=== PATIENT | male | born 1945 | race Caucasian/White ===

== ENCOUNTER 2023-04-30 11:11 | Observation (INO) ==
--- NOTE | 2023-04-30 08:15 | History & Physical Bridge Note ---
Date of Service April 30, 2023 History & Physical Bridge Note I have examined the patient, reviewed the History & Physical and in the interval since the performance of the History & Physical I have noted the following changes of clinical significance: no changes noted
--- NOTE | 2023-04-30 08:15 | Pre Anesthesia Assessment ---
Date of Service April 30, 2023 Pre Sedation Assessment Cardiovascular + regular rate Respiratory + respiratory effort normal Pre-Sedation Airway Assessment Smoking Status: Never smoker Hx Sleep Apnea: No Hx Difficult Intubation: No Short, Thick Neck: No Thyromental Distance: < 3.5 Finger Breadths Oral Cavity: + WNL Mallampati Class: III ASA: ASA3 Procedure Planning Contraindications for Sedation: none Current Medications Reviewed: Yes Notes The planned sedation has been discussed with the patient. Informed Consent was obtained. I have identified the patient, determined the appropriateness of sedation and have assessed the patient immediately prior to the procedure. All medicine(s) and interventions are by my order.
[2023-04-30] MEDS: fentaNYL citrate PF 100 MCG/2 ML VIAL ONE ×3 (15:19→18:04)
[2023-04-30] MEDS: HEPARIN (PORCINE) 1000 UNIT/ML 10 ML (CATH LAB USE ONLY) ONE ×3 (15:20→18:04)
[2023-04-30] MEDS: MIDAZOLAM HCL 1 MG/ML 2ML VIAL ONE ×2 (15:20→18:05)
[2023-04-30] MEDS: OPTIRAY 350 ONE (15:21)
[2023-04-30] MEDS: NITROGLYCERIN/D5W 100MCG/ML 20ML SYR ONE ×2 (15:21→18:05)
[2023-04-30] MEDS: niCARdipine HCL INJ 2.5 MG/ML 10 ML AMP ONE ×2 (15:21→18:05)
[2023-04-30] MEDS: CLOPIDOGREL BISULFATE 300 MG TAB ONE (15:22)
[2023-04-30] MEDS ORDERED: NITROGLYCERIN SL 0.4 MG/TAB TAB SL PRN (16:09)
[2023-04-30] MEDS ORDERED: ONDANSETRON INJ 2 MG/ML 2 ML VIAL IV PRN (16:09)
[2023-04-30] MEDS: NITROGLYCERIN SL 0.4 MG/TAB TAB ONE ×3 (16:18→16:30)
[2023-04-30] MEDS: NITROGLYCERIN 2% OINTMENT 30GM TUBE EXT ONE (17:03)
[2023-04-30] MEDS: METOPROLOL TARTRATE 1 MG/ML VIAL IV ONE (17:12)
[2023-04-30] MEDS: NITROGLYCERIN/D5W 100 MCG/ML BTL ONE (18:07)
[2023-04-30] MEDS ORDERED: STAT IV Infusion **Titration per Protocol STA (18:38)
--- NOTE | 2023-04-30 18:38 | Post Anesthesia Assessment ---
Date of Service April 30, 2023 Post Sedation Assessment Vital Signs Temp Pulse Resp BP Pulse Ox O2 Del Method 04/30/23 16:30 63 16 137/74 04/30/23 16:15 63 16 145/76 H 04/30/23 16:00 66 16 192/95 H 04/30/23 15:45 66 16 186/92 H 04/30/23 15:30 59 L 16 176/109 H 96 Room Air 04/30/23 11:49 97.7 F 60 20 149/74 H 97 Room Air Recovery Score Activity: Moves 4 extremities Respiration: Deep Breath/Cough Circulation: +/-20% PreAnes Value Consciousness: Fully Awake Oxygen Saturation: > 92% On Room Air Post Anesthesia Score: 10 Discharge Sedation Level of Care: Fast Track Phase II Post Sedation Plan On clinical assessment, the patient appears to have tolerated the sedation without complications. Patient is recovering as anticipated. Patient will continue to be monitored by nursing and may be discharged when sedation discharge criteria are met per below protocol. Upon Completions of procedure up to 15 minutes continue every 5 minute vital signs and the P.A.R. score; then discharge to a Phase I or Fast Track to Phase II per the following guidelines: * Discharge Patient to appropriate Phase II area if PAR is 8 or greater or return to pre- procedure baseline. The post - procedure orders will be as directed. * If PAR score is less than 8 or not return to pre-procedure baseline then patient will follow Phase I monitoring till PAR is reached for Phase II. The Phase I may be done in procedure room or may call to secure a Phase I area. * If naloxone or flumazenil are used for reversal, hold in Phase I for continued monitoring from when last reversal dose was given for a minimum of 60 minutes or longer pending the nurse and/or physician discretion of patient condition before discharge to Phase II. Please call the Sedation Physician to re-evaluate and complete post-note for discharge to Phase II area. Do NOT discharge from procedure sedation or Phase 1 until post- sedation evaluation note is complete by procedure /sedation MD Sedation Discharge Instructions to be given to the patient at discharge to home.
[2023-04-30] MEDS: NITROGLYCERIN/D5W 100MCG/ML 250 ML IV SCH (18:52)
[2023-04-30] MEDS: KETOROLAC TROMETHAMINE 15 MG/ML VIAL IV ONE ×2 (18:55→19:50)
[2023-04-30] MEDS: MoRPHine SULFATE 2 MG/ML CARP IV PRN (19:20)
[2023-04-30] MEDS: MoRPHine SULFATE 2 MG/ML CARP IV STA (19:49)
[2023-04-30] MEDS: SODIUM CHLORIDE 0.9% 1,000 ML IV SCH (21:15)
--- NOTE | 2023-04-30 22:10 | Cardiac Catheterization ---
[facility] Data: Pharmacy Technology Instructor Cardiac Status Clinical evaluation leading to the procedure CAD Presenation: Unstable angina Anginal Classification: CCS III Diagnostic Physicians Name: Derek Morse MD Closure Device Recommendations: PCI without planned CABG Cardiac Cath Procedure Full Procedure Date April 30, 2023 Pre-Procedure Diagnosis Pre-Procedure Diagnosis: Angina and CAD AUC Score AUC Score: 7 Post-Procedure Diagnosis Post-Procedure Diagnosis: Severe CAD and Successful PCI Procedure(s) Performed Procedure(s) Performed: Coronary Angiography, Drug Eluting Stent, IVUS and Fractional Flow [place] Survey Associate Derek Morse MD Remote Encoding Center Manager(s) Sarah Estimated Blood Loss Estimated Blood Loss: 20 Medication(s) Medication(s): Clopidogrel, Fentanyl, Heparin, Lidocaine 1%, Nicardipine, Nitroglycerin and Versed Summary of Findings Indication: Accelerating angina, history of CAD post prior PCI with stenting Access: 6 Fr right radial artery Catheters: JL 3.5, JR4, EBU 3.5 guide Findings: LM -normal caliber, calcified, 40% distal stenosis at bifurcation (IVUS revealed circumferential calcium just prior to bifurcation, CSA 7.6 mm). LAD -medium caliber, calcified, 50% ostial stenosis, 70% earlymid stenosis just after takeoff of D1. Mid LAD stent patent with in-stent restenosis up to 80% at distal aspect of existing stent. Remainder of mid and distal vessel with luminal irregularities as wraps around apex. Medium D1 hazy 40% ostial stenosis, mid diagonal mild disease. Very small jailed D2 with severe ostial disease. Small to medium D3 without disease. Circumflex -medium caliber, 50% ostial stenosis, mid segment luminal regularities. Large OM 2 without significant disease. RCA -dominant, large caliber, 30-40% proximal stenosis, mid segment with luminal regularities. PDA/PLB without significant disease. IFR assessment of LMCA/circumflex/LAD Left main cannulated with EBU 3.5 guide Russo FFR Omni wire placed across ostial circumflex stenosis into OM 2 IFR 0.97 Omni wire removed from circumflex and redirected into LAD and navigated into latemid vessel IFR 0.80 Decision to further evaluate left main with IVUS --IVUS/PCI -- Antithrombotic therapy: Heparin, clopidogrel Procedure: Left main cannulated with EBU 3.5 guide Pre-procedure flow SIVAN 3 Exhibitions And Collections Manager 50 wire passed across LAD lesion into distal vessel Prowater wire placed into first diagonal Russo IVUS catheter placed to mid LAD Pullback revealed severe in-stent restenosis at distal aspect of stent, heavy circumferential calcium, severe stenosis just after takeoff of D1, proximal LAD with mild disease. Calcified moderate ostial stenosis. LMCA with heavily calcified distal vessel before bifurcation, intermediate stenosis (CSA 7.6 mm). With moderate left main disease on IVUS and nonsignificant LMCA/circumflex disease by IFR decision to proceed with PCI of LAD Mid LAD lesions predilated with 2.5 compliant balloon Difficulty passing stent across proximal aspect of stent Telescope support catheter placed and proximal aspect of stent redilated with 3.0 balloon Dilated lesion at distal aspect of existing stent stented with 2.5 x 15 mm Dre LOLA overlapping with prior stent Stent postdilated with stent balloon to high atmospheres Earlymid LAD lesion stented with 3.0 x 12 mm [place] LOLA extending across takeoff of D1 and overlapping proximal aspect of existing stent Repeat IVUS showed no acute complications at distal aspect of stent. Stents well-expanded. Most proximal aspect of stent not well apposed. No change in distal left main or ostial LAD disease. Proximal most stent post-dilated with 3.5 noncompliant balloon IC vasodilators administered for spasm Post procedure SIVAN 3 flow, stent well expanded with minimal residual stenosis. Very small jailed D2 with reduced flow. Residual moderate to severe ostial stenosis of D1 but SIVAN-3 flow. No other apparent complications Arterial Closure: TR band Summary: 1. Multivessel coronary artery disease -50% ostial LAD, 70% earlymid LAD, patent mid LAD stent with 80% in-stent restenosis at distal aspect (IFR 0.80) 40% distal left main (CSA 7.6 mm) 50% ostial circumflex (IFR 0.97). 2. Successful PCI of proximal to mid LAD with 3.0 x 12 mm Dre LOLA (postdilated with 3. 5 NC). 3. Successful PCI of mid LAD in-stent restenosis involving distal stent edge with 2.5 x 15 mm [place] LOLA. Recommendations: To PCU for continued monitoring Continue dual-antiplatelet therapy for at least 6 months, likely extended the setting of multiple overlapping stents ASCVD risk factor modification including more aggressive lipid management Consult cardiac Rehab Hemodynamics Rest Ao:: 114/66/86 Final Ao: 140/73/99 LV: -- Recommendations Recommendations: PCI without planned CABG Specimens Specimens: None Radiation Exposure (mGy) 4749 Contrast (mls) 140 Anesthesia Moderate 4238-5948 Procedural Complication(s) None Disposition Pharmacy Technology Instructor Holding/Recovery I attest to the content of the Intraoperative Record and any orders documented therein. Any exceptions are noted below. [facility] Card Cath Procedure Codes Cardiac Catheterization Procedure 1: Cardiovascular Cath Procedures: 84827 Coronaries and LHC (+/-LV) Procedure 2: Cardiovascular Cath Procedures: 96034 (Doppler) Pressure Wire Procedure 3: Cardiovascular Cath Procedures: 61060 (Doppler) Pressure Wire Addl vessel Therapeutic Services & Ancillary Procedure 1: Cardiovascular Tx and Anc Procedures: 84959 IV Ultrasound (Coronary or Graft) Moderate Sedation Procedure 1: Sedation/Anesthesia: 08118 Mod Sedation by the same physician;Init15 Min Child Age 5 & Up Procedure 2: Sedation/Anesthesia: 52872 Mod Sedation by the same physician; Ea [id number] Minutes Stenting Procedure 1: Cardiovascular Stent Procedures: 02072 Perc transcatheter placement of intracoronary stent(s), with ang PG Care Time/CCT Total # of Minutes Spent Total Time Spent with Patient: Total time spent is greater than 50% in coordination of care (as documented) at patient's floor/unit and/or counseling patient:
--- NOTE | 2023-04-30 23:09 | Cardiac Catheterization ---
[facility] Data: Electric Motor Winders Assembler Cardiac Status Clinical evaluation leading to the procedure CAD Presenation: Unstable angina Diagnostic Physicians Name: Derek Morse MD Closure Device Recommendations: PCI without planned CABG Cardiac Cath Procedure Full Procedure Date April 30, 2023 Pre-Procedure Diagnosis Pre-Procedure Diagnosis: Angina and CAD AUC Score AUC Score: 8 Post-Procedure Diagnosis Post-Procedure Diagnosis: Moderate CAD Procedure(s) Performed Procedure(s) Performed: Coronary Angiography, Left Heart Cath and IVUS Solar Process Engineer Derek Morse MD Precipitator(s) Sarah Estimated Blood Loss Estimated Blood Loss: 5 Medication(s) Medication(s): Fentanyl, Heparin, Lidocaine 1%, Nicardipine, Nitroglycerin and Versed Summary of Findings Indication: Earlier in the afternoon patient underwent PCI of calcified mid LAD in-stent restenosis with placement of 2 new LOLA. Initially post procedure feeling well subsequently developed low-grade chest pain which progressed and was associated with subtle lateral ST changes. Decision to return to Electric Motor Winders Assembler for repeat angiography Access: 6 Fr left radial artery Catheters: Pigtail, JR4, EBU 3.5 guide Findings: Coronary arteries unchanged from final images post PCI earlier in afternoon. Intermediate left main disease persists. LAD stents widely patent with no apparent edge. SIVAN-3 flow in LAD, circumflex although appears slightly sluggish globally. SIVAN II-III flow in medium D1, very small D2. LM -normal caliber, calcified, 40% distal stenosis at bifurcation LAD -medium caliber, calcified, 50% ostial stenosis, proximal to mid stents widely patent, remainder of mid and distal vessel with luminal irregularities as wraps around apex. Jailed medium D1 hazy 60% ostial stenosis Very small jailed D2 with severe ostial disease. Small to medium D3 without disease. Circumflex -medium caliber, 50% ostial stenosis, mid segment luminal regularities. Large OM 2 without significant disease. RCA -dominant, large caliber, 30-40% proximal stenosis, mid segment with luminal regularities. PDA/PLB without significant disease. --IVUS of LMCA/LAD-- Antithrombotic therapy: Heparin Procedure: Left main cannulated with EBU 3.5 guide BMW wire placed into distal LAD Russo IVUS catheter placed to mid LAD Pullback revealed well-expanded, well apposed stents throughout LAD. Unchanged intermediate, calcified ostial LAD and distal LMCA disease. Post procedure angiography revealed no apparent complications LVEDP 15 Arterial Closure: TR band Summary: 1. Stable, unchanged multivessel coronary artery disease -50% ostial LAD, widely patent proximal to mid LAD stents. Jailed D1 60% ostial 40% distal left main 50% ostial circumflex 2. Normal left-sided filling pressures. Recommendations: To PCU for continued monitoring Continue dual-antiplatelet therapy for at least 6 months, likely extended the setting of multiple overlapping stents Additional nitrates for possible chest pain related to jailed diagonals Repeat echo Hemodynamics Rest Ao:: 149/82/113 Final Ao: 154/75/99 LV: 162/15 Recommendations Recommendations: PCI without planned CABG Specimens Specimens: None Radiation Exposure (mGy) 1037 Contrast (mls) 50 Anesthesia Moderate 7461-1813 Procedural Complication(s) None Disposition PCU I attest to the content of the Intraoperative Record and any orders documented therein. Any exceptions are noted below. [facility] Card Cath Procedure Codes Cardiac Catheterization Procedure 1: Cardiovascular Cath Procedures: 74955 Left Heart Cath (+/-LV) Therapeutic Services & Ancillary Procedure 1: Cardiovascular Tx and Anc Procedures: 37829 IV Ultrasound (Coronary or Graft) Moderate Sedation Procedure 1: Sedation/Anesthesia: 68673 Mod Sedation by the same physician;Init15 Min Child Age 5 & Up PG Care Time/CCT Total # of Minutes Spent Total Time Spent with Patient: Total time spent is greater than 50% in coordination of care (as documented) at patient's floor/unit and/or counseling patient:
[2023-04-30] MEDS ORDERED: ACETAMINOPHEN 325 MG TAB PO PRN (23:47)
[2023-04-30] MEDS ORDERED: MoRPHine SULFATE 2 MG/ML CARP IV PRN (23:49)
[2023-05-01] MEDS: IBUPROFEN 600 MG TAB PO SCH (00:05)
[2023-05-01] MEDS: fentaNYL citrate PF 100 MCG/2 ML VIAL IV STA (00:05)
[2023-05-01] MEDS: MoRPHine SULFATE 2 MG/ML CARP IV PRN (02:40)
[2023-05-01] MEDS: LEVOTHYROXINE SODIUM 50 MCG TABLET PO SCH (04:59)
[2023-05-01 06:10] LABS: Hemoglobin 12.3 g/dl (14.0-18.0); Mean Corpuscular Hemoglobin 29.7 pg (25.0-34.0); Mean Corpuscular Hgb Conc 33.2 g/dL (32.0-36.0); Mean Corpuscular Volume 89.4 fL (80.0-100.0); Mean Platelet Volume 10.3 fL (9.4-12.4); Platelet Count 172 K/uL (130-400); RDW Coefficient of Variation 14.6 % (11.5-14.5); RDW Standard Deviation 46.9 fL (36.4-46.3); Red Blood Count 4.14 M/uL (4.70-6.10); White Blood Count 7.44 K/ul (4.8-10.8)
[2023-05-01 06:20] LABS: BUN Creatinine Ratio 15.4 (10-20); Calcium 8.8 mg/dl (8.6-10.3); Creatinine Clr Calc Pharmacy 66.7 ml/min; Est GFR (African American) 78.8 ml/min; Potassium 4.1 mmol/L (3.5-5.1)
[2023-05-01 06:34] LABS: Troponin I High Sensitivity 1286.7 pg/ml (0-20)
[2023-05-01] MEDS: allopurinoL 300 MG TAB PO SCH (08:28)
[2023-05-01] MEDS: NITROGLYCERIN/D5W 100 MCG/ML BTL ONE (08:28)
[2023-05-01] MEDS: PANTOprazole 40 MG TAB PO SCH (08:28)
[2023-05-01] MEDS: EZETIMIBE 10 MG TAB PO SCH (08:28)
[2023-05-01] MEDS: ASPIRIN 81 MG ECTAB PO SCH (08:29)
[2023-05-01] MEDS: CLOPIDOGREL BISULFATE 75 MG TAB PO SCH (08:29)
[2023-05-01] MEDS: METOPROLOL SUCC 25MG EXT REL TAB PO SCH (08:29)
[2023-05-01] MEDS: lisinopril 10 MG TAB PO SCH (08:29)
[2023-05-01] MEDS ORDERED: NON-FORMULARY MEDICATION (Coenzyme Q10 100 mg capsule) PO SCH (09:00)
--- NOTE | 2023-05-01 10:10 | XRay Report ---
XR chest 2V PA/lateral HISTORY: Atypical chest pain. COMPARISON: None. FINDINGS: There are low lung volumes. No pneumothorax. The heart is mildly enlarged. No pleural effus ions. No evidence for pulmonary edema. Bibasilar linear densities most pronounced on the left. No acu te fractures identified. IMPRESSION: Low lung volumes with bibasilar linear densities. These favor subsegmental atelectasis. A pneumonia i s considered less likely but not entirely excluded. ACT 112: Negative or not required by law. Electronically signed by: Ramiro Szymanski M.D. 05/01/2023 10:09 AM
--- NOTE | 2023-05-01 12:51 | Electrocardiogram Report ---
Test Reason : Blood Pressure : / mmHG Vent. Rate : 060 BPM Atrial Rate : 060 BPM P-R Int : 192 ms QRS Dur : 086 ms QT Int : 448 ms P-R-T Axes : 023 006 049 degrees QTc Int : 448 ms Sinus rhythm with frequent Premature ventricular complexes Otherwise normal ECG When compared with ECG of 28-APR-2023 15:11, (unconfirmed) No significant change was found Confirmed by Christiano Zaidi ([id number]) on 05/01/2023 12:50:59 PM Referred By: Javier Morse Confirmed By:Christiano Zaidi
--- NOTE | 2023-05-01 12:53 | Electrocardiogram Report ---
Test Reason : Blood Pressure : / mmHG Vent. Rate : 065 BPM Atrial Rate : 065 BPM P-R Int : 188 ms QRS Dur : 082 ms QT Int : 422 ms P-R-T Axes : 026 006 043 degrees QTc Int : 438 ms Sinus rhythm with occasional Premature ventricular complexes Nonspecific ST abnormality Abnormal ECG When compared with ECG of 30-APR-2023 15:53, (unconfirmed) No significant change was found Confirmed by Christiano Zaidi ([id number]) on 05/01/2023 12:53:13 PM Referred By: Javier Morse Confirmed By:Christiano Zaidi
--- NOTE | 2023-05-01 13:08 | Electrocardiogram Report ---
Test Reason : Blood Pressure : / mmHG Vent. Rate : 076 BPM Atrial Rate : 076 BPM P-R Int : 192 ms QRS Dur : 080 ms QT Int : 398 ms P-R-T Axes : 020 002 045 degrees QTc Int : 447 ms Sinus rhythm with frequent Premature ventricular complexes and Fusion complexes RSR' or QR pattern in V1 suggests right ventricular conduction delay Abnormal ECG When compared with ECG of 30-APR-2023 16:26, (unconfirmed) Fusion complexes are now Present Confirmed by Christiano Zaidi ([id number]) on 05/01/2023 1:07:39 PM Referred By: Javier Morse Confirmed By:Christiano Zaidi
--- NOTE | 2023-05-01 13:14 | Cardiology Progress Note ---
Date of Service May 01, 2023 Assessment & Plan (1) CAD (coronary artery disease): Plan: Post PCI with 2 LOLA to LAD 2. Pleuritic chest pain 3. PAD post prior endovascular intervention 4. Hypertension 5. Dyslipidemia with statin intolerance 6. Type 2 diabetes Patient with ongoing pleuritic chest pain. Current chest pain does not represent ongoing issue with coronary arteries postintervention. No clear lung pathology on chest x-ray. Scant wheezing but no clear signs of heart failure on exam. Chest pain not reproducible with palpation. Suspect chest pain most likely secondary to pericarditis/post cardiac injury syndrome. Low suspicion for PE but with new mild to moderate pulmonary hypertension check chest CTA. Continue scheduled NSAIDs, add colchicine. Started on PPI Will give 1 dose of IV Lasix. Consider trial of bronchodilator. -- Check CTA -- Continue current DAPT with aspirin, clopidogrel Continue current metoprolol, lisinopril -- Continue Zetia. PCSK9 dicussion as an outpatient If CTA unremarkable, CP reasonably controlled OK with home later today or tomorrow AM. Admission and Anticipated Discharge Date Admission Date: April 30, 2023 Subjective Continues to have diffuse chest pain, pleuritic in nature. Intermittently able to rest. Minimal response to morphine. Telemetry reviewedno events Chest x-ray unremarkable Echocardiogrampreserved biventricular function. Trivial pericardial effusion. Moderate pulmonary hypertension Review of Systems Review of Systems: All systems reviewed & are unremarkable except as noted in HPI & below Physical Exam Physical Exam: General: Uncomfortable after deep breath HEENT: Sclerae anicteric Lungs: Clear to auscultation bilaterally, few crackles that resolved with inspiration. Question upper airway wheezing Cardiac: Regular rate and rhythm, no murmurs. No rub Vascular: 2+ radial pulses bilaterally. No hematoma Abdomen: Soft, nontender Extremities: Well perfused, no peripheral edema Neuro: Nonfocal Psych: Alert orient x3, normal affect and mood Results & Data Vital Signs (Past 12 Hours) Vital Signs Temp Pulse Pulse Resp BP BP Pulse Ox 05/01/23 11:50 98.4 F 66 16 146/76 H 99 05/01/23 08:12 98.1 F 65 16 143/72 H 93 05/01/23 08:00 05/01/23 07:00 68 05/01/23 03:18 98.1 F 62 18 133/77 92 O2 Del Method 05/01/23 11:50 Room Air 05/01/23 08:12 Room Air 05/01/23 08:00 Room Air 05/01/23 07:00 05/01/23 03:18 Room Air PG Care Time/CCT Total # of Minutes Spent Total Time Spent with Patient: Total time spent is greater than 50% in coordination of care (as documented) at patient's floor/unit and/or counseling patient: Coding Level of Care Code 95488 SUB INP/OBS CARE 3/50MIN Diagnoses CAD (coronary artery disease) I25.10
--- NOTE | 2023-05-01 13:19 | XCELERA ---
[id number]
[2023-05-01] MEDS ORDERED: oxyCODONE HCL IR 5 MG TAB (IMMEDIATE RELEASE) PO PRN (13:36)
[2023-05-01] MEDS: OPTIRAY 320 125ml IV ONE (15:05)
[2023-05-01] MEDS: FUROSEMIDE INJ 20 MG/2 ML VIAL IV ONE (15:07)
[2023-05-01] MEDS: COLCHICINE 0.6 MG TAB PO SCH (15:07)
--- NOTE | 2023-05-01 15:24 | CT Scan Report ---
CT ANGIOGRAPHY OF THE CHEST, PULMONARY EMBOLUS PROTOCOL CLINICAL HISTORY: Pleuritic chest pain. Evaluate for pulmonary embolus. COMPARISON STUDY: Chest radiograph performed earlier today. TECHNIQUE: Following IV administration of Optiray, helical axial images of the chest were obtained ut ilizing the pulmonary embolus protocol. Maximal intensity projections and sagittal and coronal refor mats were viewed on an independent 3D workstation. IV contrast was administered without complication . Automated exposure control was utilized for the study. A dose lowering technique was utilized adh ering to the principles of ALARA. CT DOSE: 770.71 mGy.cm FINDINGS: No pulmonary emboli are identified. Subsegmental pulmonary arteries are suboptimally asses sed due to respiratory motion. There is mild cardiomegaly and extensive coronary artery calcification . There is a small pericardial effusion. Measures above water attenuation. No thoracic aortic dissec tion is present. There is no thoracic lymphadenopathy. No pneumothorax or pleural effusion is present . Lungs are suboptimally assessed due to respiratory motion. Low lung volumes are noted. Subpleural o pacities favor atelectasis. A few patchy groundglass upper lobe opacities are noted. The largest is a 1.6 cm right upper lobe focus on image 149. No acute fractures within the bony thorax are identified . Visualized portions of the upper abdomen are unremarkable. IMPRESSION: 1. No pulmonary emboli identified. 2. Mild cardiomegaly and extensive coronary artery calcification. Small pericardial effusion which me asures above water attenuation, as described above. Pericarditis cannot be excluded. No thoracic aort ic dissection. 3. A few patchy upper lobe groundglass opacities. These could reflect atelectasis, mild edema or an i nfectious process. A chest CT in 3 months to ensure resolution is recommended. ACT 112: Negative or not required by law. Electronically signed by: Carlos Russell M.D. 05/01/2023 3:22 PM
--- OUTSIDE RECORDS SUMMARY | 2023-05-02 21:08 | External Medical Summary | Summary of Care ---
Author Name Unknown Organization [facility] Address [address] [address] Phone [phone] Care Team Providers Care Trousseau Consultant Name Role Phone Link Ashley MD Primary Care Provider + Encounter Details Date Type Department Care Team (Late st Contact Info) Description 04/30/2023 Result Scan Unspecified Department <No scans attached> Allergies Active Allergy Reactions Criticality Noted Date Comments Atorvastatin 05/01/2018 myaglias Rosuvastatin Muscle pain 05/01/2018 Mirtazapine 11/17/2019 Dizzy Simvastatin Muscle pain 10/09/2017 documented as of this encounter (statuses as of 05/01/2023) Medications Medication Sig Dispensed Refills Start Date End Date Status Aspirin 81 MG Tablet Take 1 Tablet by mouth in the morning. 0 Active clopidogrel (PLAVIX) 75 MG Tablet Take 1 Tablet by mouth in the morning. 0 Active Coenzyme Q10 (CO Q 10) 100 MG CAPS Take by mouth. 0 Active vitamin e 100 UNIT Capsule Take 1 Capsule by mouth in the morning. 0 Active Vitamin D, Cholecalciferol, 400 units TABS Take by mouth. 0 Active Metoprolol Succinate ER 25 MG Oral Tablet Extended Release 24 Hour (toPROL XL) Take 1 Tablet by mouth in the morning. 0 Active Sildenafil Citrate 100 MG Oral TabletIndications:Erec tile dysfunction, unspecified erectile dysfunction type Take 1 Tablet by mouth daily as needed for Erectile Dysfunction. 10 Tablet 11 2022 Active Allopurinol 300 MG Oral Tablet (Zyloprim)Indications: Chronic gout without tophus, unspecified cause, unspecified site TAKE ONE TABLET BY MOUTH EVERY MORNING 90 Tablet 3 07/02/2022 Active Ezetimibe 10 MG Oral Tablet (Zetia) Take 1 Tablet by mouth at bedtime. 0 Active Hunter-3 1000 MG Oral Capsule Take by mouth. 0 Active Lisinopril 10 MG Oral Tablet (Prinivil) TAKE ONE TABLET BY MOUTH EVERY MORNING 90 Tablet 3 07/22/2022 Active Levothyroxine Sodium 50 MCG Oral Tablet (Levoxyl)Indications:A cquired hypothyroidism (at least 30 min prior to breakfast or other meds) 90 Tablet 3 11/12/2022 Active Celecoxib 200 MG Oral Capsule (CeleBREX) Take 1 Capsule by mouth 2 times a day as needed for Pain, Mild. 0 10/14/2022 Active metFORMIN HCl ER 500 MG Oral Tablet Extended Release 24 Hour (Glucophage XR)Indications:Type 2 diabetes mellitus with hemoglobin A1c goal of less than 8.0% (HCC) TAKE ONE TABLET BY MOUTH EVERY MORNING 90 Tablet 1 03/10/2023 Active documented as of this encounter (statuses as of 05/01/2023) Active Problems Problem Noted Date Diagnosed Date S/P total hip arthroplasty 11/12/2022 Overview: bilateral 2022 Type 2 diabetes mellitus wit h diabetic peripheral angiopathy without gangrene 2022 History of 2019 novel coronavirus disease (COVID -19) 11/12/2019 Peripheral arterial disease 11/12/2019 Persistent insomnia 11/12/2019 Type 2 diabetes mellitus wit h hemoglobin A1c goal of less than 8.0% 02/09/2019 Overview: 02/18 new dx 6.7 Other hyperlipidemia 05/01/2018 Well adult exam 05/01/2018 Overview: 01/21 fem pop stent on Right. Dr Morse [facility]. Declined PSCK9 07/29/[address] Froylan Verdugo / Dr Ribeiro [facility]. Sees Dr Lozano. 02/17 colonoguard WNL Declines all vaccines (friend ). Pancreatic cyst--2018-surgical removal rec--declined. Present since 2009. Monitor. Erectile dysfunction 01/30/2018 Coronary artery disease invo lving [place] coronary artery of [place] heart without angina pectoris 10/29/2017 Acquired hypothyroidism 10/29/2017 ALMA (generalized anxiety disorder) 10/29/2017 Pancreatic cyst 10/29/2017 Chronic gout without tophus 10/29/2017 HTN, goal below 130/80 10/29/2017 IPMN (intraductal papillary mucinous neoplasm) 0 10/11/2017 documented as of this encounter (statuses as of 05/01/2023) Social History Tobacco Use Types Packs/Day Years Used Date Smoking Tobacco: Former Smokeless Tobacco: Current Snuff Alcohol Use Standard Drinks/Week Comments No 0 (1 standard drink = 0.6 oz pur e alcohol) PHQ-2 Answer Date Recorded PHQ Adult Total Score 0 11/12/2022 Hunger Vital Sign Answer Date Recorded Within the past 12 months, y ou worried that your food would run out before you got the money to buy more. Never true 11/13/19 23 Within the past 12 months, t he food you bought just didn't last and you didn't have money to get more. Never true 11/12/2022 Sex and Gender Information Value Date Recorded Sex Assigned at Male 11/12/2022 2:49 PM EDT Gender Identity Male 11/12/2022 2:49 PM EDT Sexual Orientation Straight 11/12/2022 2: 49 PM EDT Job Start Date Occupation Industry Not on file Not on file Not on file documented as of this encounter Plan of Treatment Upcoming Encounters Date Type Department Care Team (Late st Contact Info) Description 11/14/2023 12:20 PM EDT Office Visit Family Practice [facility] [address] [id number] Link Ashley MD [address] [place] [address] Health Maintenance Due Date Last Done Comments Zoster Vaccines (1 of 2) 1994 Diabetic Eye Exam 01/15/2023 01/15/2022, , 01/15/2022, Additional history exists Diabetic Foot Exam 2023 2022, 09/20/2020 HbA1c 05/09/2023 11/08/2022, 05/0 05/2022, 01/22/2022, Additional history exists GFR 07/04/2023 07/03/2022, 01/02, 06/22/2021, Additional history exists TSH 11/09/2023 11/08/2022, 06/02, 12/18/2020, Additional history exists Albumin/Creatinine Ratio 11/13/2023 023, 01/22/2022, 09/01/2020 Depression Screening 11/13/2023 11/12/2022, 10/30/19 18 DTaP,Tdap,and Td Vaccines (2 - Td or Tdap) 10/30/2027 10/29/2017 (Declined) COVID-19 Vaccine Discontinued GARDASIL-HPV IMMUNIZATION SERIES Aged Out No longer eligible based on patient's age to complete this topic Hepatitis B Aged Out No longer eligi ble based on patient's age to complete this topic MENINGOCOCCAL (MENACTRA/MENVEO) Aged Out No longer eligible based on patient's age to complete this topic documented as of this encounter Medical Devices Not on filedocumented as of this encounter Procedures Procedure Name Priority Date/Time Associated Diagnosis Comments CARDIAC CATH SCANNED RESULT 04/30/2023 documented in this encounter Results * CARDIAC CATH SCANNED RESULT (04/30/2023) 04/30/2023 No Physician Data Unknown CARD CATH documented in this encounter Care Teams Trousseau Consultant Relationship Specialty Start Date End Date Link Ashley MD [address] [facility] [address] [place] [address] PCP - General Family Medicine 04/30/18 documented as of this encounter
--- NOTE | 2023-05-02 23:44 | Discharge Summary ---
Date of Service May 02, 2023 Admission HPI Per Admitting Provider Mr. Gomes is a very pleasant 78-year-old man with a history of CAD post prior PCI and PAD post prior lower extremity endovascular intervention. Seen 04/28 for acute visit in the setting of progressive shortness of breath. Presented 04/30 for repeat cardiac catheterization. Medical history also significant for hypertension, dyslipidemia, type 2 diabetes. Dyslipidemia with statin intolerance. Patient reports gradual progressive shortness of breath for months although symptoms have worsened significantly over the last few weeks. Denies any chest pain. Now short of breath just walking to mailbox or just walking to bed. States symptoms feel just like what he had before prior PCI's. No palpitations, presyncope. No new lower extremity edema orthopnea. ECG today shows sinus rhythm with occasional PVCs, no ST abnormalities. PAD history: He was seen in consult on 01/04/21 for claudication. In July 2019 he underwent right [employer],SFA endarterectomy with bovine patching performed by Dr. Verdugo. This was in the setting of claudication and rest pain. His symptoms resolved post intervention but later recurred. Angiogram 01/2021 showed only calcified popliteal disease with single-vessel runoff via peroneal. He underwent successful angioplasty and and stenting of right popliteal artery with drug eluding balloon (6.0 x120 Lutoxi) and Supera stent (6 x120 mm). Repeat angiogram 02/07/23 in setting of left lower extremity claudication. Had left mild to moderate diffuse SFA disease, heavily calcified 75% proximal and 95% mid popliteal stenosis. Single vessel runoff via peroneal. Underwent successful intervention of left popliteal artery with shockwave intravascular lithotripsy, angioplasty with Lutonix ZELDA and stenting (Supera 6x 120). Significant improvement in symptoms post intervention. Social history: , lives in [place]. No tobacco use. Specialty Data Cardiology Summary: 1. Multivessel coronary artery disease -50% ostial LAD, 70% earlymid LAD, patent mid LAD stent with 80% in-stent restenosis at distal aspect (IFR 0.80) 40% distal left main (CSA 7.6 mm) 50% ostial circumflex (IFR 0.97). 2. Successful PCI of proximal to mid LAD with 3.0 x 12 mm Dre LOLA (postdilated with 3. 5 NC). 3. Successful PCI of mid LAD in-stent restenosis involving distal stent edge with 2.5 x 15 mm [place] LOLA. Discharge Data Procedures Performed Operation Date: 04/30/23 17:30 Actual Procedures p Cineradiography w/Routine Exam - Derek Morse MD p Cath, Coronaries ONLY (no LV) - Derek Morse MD s IVUS Coronary Single Vessel - Derek Morse MD Hospital Course (1) CAD (coronary artery disease): Post PCI with 2 LOLA to LAD 2. Pleuritic chest pain 3. PAD post prior endovascular intervention 4. Hypertension 5. Dyslipidemia with statin intolerance 6. Type 2 diabetes Underwent repeat cardiac catheterization on 04/30/2023. Was noted to have severe mid LAD disease/in-stent restenosis. Had intermediate distal left main/ostial circumflex disease which was negative by IFR and IVUS. Underwent PCI of LAD with placement of drug-eluting stents. Several hours after procedure patient developed worsening chest pain and had subtle ECG changes prompting repeat cardiac catheterization which showed unchanged coronary angiography. Continued to have severe mostly pleuritic chest pain post procedure. Echocardiogram showed preserved biventricular function with trivial pericardial effusion. Chest CTA negative for PE/aortic pathology. Had modest rise and fall of HS TropI. Symptoms thought most likely secondary to acute pericarditis/postcardiac injury syndrome. Started on NSAIDs, colchicine. Also had some improvement following 1 dose of IV Lasix. On hospital day 2 chest pain reasonably controlled and discharged home. -- Continue current DAPT with aspirin, clopidogrel Continue current metoprolol, lisinopril -- Continue Zetia. PCSK9 dicussion as an outpatient Will follow-up with Dr. Morse in 2 weeks. Discharge Instructions Home Medications allopurinol 300 mg tablet 300 mg PO DAILY 01/03/21 [History Confirmed 04/28/23] aspirin 81 mg tablet,delayed release 81 mg PO DAILY 01/03/21 [History Confirmed 04/28/23] cholecalciferol (vitamin D3) 10 mcg (400 unit) tablet 10 mcg PO DAILY 01/03/21 [History Confirmed 04/28/23] clopidogrel 75 mg tablet (Plavix) 75 mg PO DAILY 01/03/21 [History Confirmed 04/28/23] coenzyme Q10 100 mg capsule 100 mg PO DAILY 01/03/21 [History Confirmed 04/28/23] levothyroxine 50 mcg tablet 50 mcg PO DAILY 01/03/21 [History Confirmed 04/28/23] lisinopril 10 mg tablet 10 mg PO DAILY 01/03/21 [History Confirmed 04/28/23] metformin 500 mg tablet 500 mg PO DAILY 01/03/21 [History Confirmed 04/28/23] metoprolol succinate 25 mg tablet,extended release 24 hr 25 mg PO DAILY 01/03/21 [History Confirmed 04/28/23] sildenafil 25 mg tablet 25 mg PO DAILY PRN Sexual Activity 01/03/21 [History Confirmed 04/28/23] vitamin E 100 unit capsule 100 unit PO DAILY 01/03/21 [History Confirmed 04/28/23] ezetimibe 10 mg tablet 10 mg PO DAILY #90 tabs 04/28/23 [Rx Confirmed 04/28/23] colchicine 0.6 mg tablet (Colcrys) 0.6 mg PO BID #60 tabs 05/01/23 [Rx] ibuprofen 600 mg tablet 600 mg PO Q8 PRN Chest Pain #30 tabs 05/01/23 [Rx] pantoprazole 40 mg tablet,delayed release 40 mg PO QAM #30 tabs 05/01/23 [Rx] Coding Level of Care Code 86115 IN/OBS DISCH 30 MIN/LESS Diagnoses CAD (coronary artery disease) I25.10
== END 2023-05-01 18:41 | disposition home or self-care (01) ==
LOC: 2S 11:11 → CC 11:11
PROC: CLB.CCO (2023-04-30 17:30)